=== PATIENT | male | born 2000 | race Caucasian/White ===

== ENCOUNTER 2022-06-08 22:54 | Emergency (ER) | payer OTHER ==
[2022-06-08] MEDS ORDERED: Lactated Ringer's 1,000 ML ONE (23:22)
[2022-06-08] MEDS ORDERED: Ondansetron PF 4 MG/2 ML Vial ONE (23:22)
[2022-06-08] MEDS ORDERED: Morphine 4 MG/ML VIAL ONE ×2 (23:22→23:43)
[2022-06-08] MEDS ORDERED: Bacitracin 1 PK ONE (23:40)
[2022-06-09] MEDS ORDERED: Lactated Ringer's 1,000 ML ONE (00:46)
[2022-06-09] MEDS ORDERED: Morphine 4 MG/ML VIAL ONE (00:59)
== END 2022-06-09 01:30 | disposition short-term general hospital (02) ==
LOC: MADERS 22:54
DX: T23.331A Burn of third degree of multiple right fingers (nail), not including thumb, initial encounter (principal); T23.251A Burn of second degree of right palm, initial encounter; T23.221A Burn of second degree of single right finger (nail) except thumb, initial encounter; T23.232A Burn of second degree of multiple left fingers (nail), not including thumb, initial encounter; T24.222A Burn of second degree of left knee, initial encounter; T31.0 Burns involving less than 10% of body surface; X08.8XXA Exposure to other specified smoke, fire and flames, initial encounter
CPT/HCPCS: 16020; 94760; 96361; 96374; 96375; 96376; J2270; J2405; J7120